=== PATIENT | female | born 2000 | race Caucasian/White ===

== ENCOUNTER 2018-08-16 18:21 | Emergency (ER) | payer OTHER ==
[2018-08-16 18:49] VITALS: BP 127/78
--- NOTE | 2018-08-16 18:55 | UC ---
FLU HPI - HPI Summary HPI Summary: awoke this morning with fevers and body aches---cough, no n/v/d - History of Current Complaint Chief Complaint: UCRespiratory Stated Complaint: FEVER Time Seen by Provider: 08/16/18 19:00 Hx Obtained From: Patient Hx Last Menstrual Period: IS ON CONTINOUR BCP , DOES NOT HAVE PERIODS ?: No Onset/Duration: Sudden Onset, Lasting Hours - 12 Severity Currently: Moderate Severity Initially: Moderate Pain Intensity: 5 Pain Scale Used: 0-10 Numeric Associated Signs & Symptoms: Positive: Fever, Myalgia, Cough, Headache - Allergy/Home Medications Allergies/Adverse Reactions: Allergies Allergy/AdvReac Type Severity Reaction Status Date / Time No Known Allergies Allergy Verified 08/16/18 18:40 Home Medications: Home Medications Acetaminophen [Tylenol Extra Strength] 1,000 mg PO PRN 08/16/18 [History] Ibuprofen TAB* [Advil TAB*] 200 mg PO Q6H PRN 08/16/18 [History Confirmed ] Norethindrone-E.estradiol-Iron [Junel Fe 1 mg-20 Mcg Tablet] 1 each PO DAILY 04/24 [History Confirmed 08/16/18] PMH/Surg Hx/FS Hx/Imm Hx Previously Healthy: Yes - Surgical History Surgical History: None - Family History Known Family History: Positive: None - Social History Occupation: Student Lives: Dormitory/Roommates Alcohol Use: Weekly Substance Use Type: None Smoking Status (MU): Never Smoked Tobacco Review of Systems All Other Systems Reviewed And Are Negative: Yes Constitutional: Positive: Fever, Chills, Fatigue Skin: Positive: Negative Eyes: Positive: Negative ENT: Positive: Negative Respiratory: Positive: Cough Cardiovascular: Positive: Negative Gastrointestinal: Positive: Negative Genitourinary: Positive: Negative Motor: Positive: Negative Neurovascular: Positive: Negative Musculoskeletal: Positive: Arthralgia, Myalgia Neurological: Positive: Headache Psychological: Positive: Negative Is Patient Immunocompromised?: No Physical Exam Triage Information Reviewed: Yes Appearance: Well-Nourished, Ill-Appearing, Pain Distress Vital Signs: Initial Vital Signs Temp 99.5 F 08/16/18 18:42 Pulse 92 08/16/18 18:42 Resp 16 08/16/18 18:42 BP 127/78 08/16/18 18:42 Pulse Ox 100 08/16/18 18:42 Vital Signs Reviewed: Yes Eye Exam: Normal Eyes: Positive: Conjunctiva Clear ENT Exam: Normal ENT: Positive: Normal ENT inspection, Hearing grossly normal, Pharynx normal, TMs normal, Uvula midline. Negative: Nasal congestion, Trismus, Muffled voice, Hoarse voice, Dental tenderness, Sinus tenderness Dental Exam: Normal Neck exam: Normal Neck: Positive: Supple, Nontender Respiratory Exam: Normal Respiratory: Positive: Chest non-tender, Lungs clear, Normal breath sounds, No respiratory distress, No accessory muscle use Cardiovascular Exam: Normal Cardiovascular: Positive: RRR, No Murmur, Pulses Normal, Brisk Capillary Refill Abdominal Exam: Normal Musculoskeletal Exam: Normal Musculoskeletal: Positive: Strength Intact, ROM Intact, No Edema Neurological Exam: Normal Neurological: Positive: Alert, Muscle Tone Normal Psychological Exam: Normal Skin Exam: Normal Diagnostics - Laboratory Diagnostic Studies Completed/Ordered: influenza A (+) Flu Course/Dx - Course Course Of Treatment: increase fluids, tylenol, ibuprofen, tamiflu follow at [facility] - Differential Dx/Diagnosis Provider Diagnosis: Influenza A Discharge - Sign-Out/Discharge Documenting (check all that apply): Patient Departure All imaging exams completed and their final reports reviewed: No Studies - Discharge Plan Condition: Stable Disposition: HOME Prescriptions: Oseltamivir CAP* [Tamiflu CAP*] 75 mg PO BID #[id number] Patient Education Materials: Ibuprofen (By mouth), Influenza (ED) Referrals: [facility] [Outside] - If Needed - Billing Disposition and Condition Condition: STABLE Disposition: Home
[2018-08-16 19:03] LABS: Influenza A Molecular POSITIVE (Negative)
[2018-08-16] MEDS ORDERED: Oseltamivir CAP* 75 MG CAP PO ONE (19:08)
== END 2018-08-16 19:21 | disposition home or self-care (01) ==
LOC: UCCORT 18:21
DX: J10.1 Influenza due to other identified influenza virus with other respiratory manifestations (principal)
CPT/HCPCS: 99202; A9270-GY; G0463